=== PATIENT | female | born 1950 | race Caucasian/White ===

== ENCOUNTER 2018-02-09 18:26 | Emergency (ER) | payer MEDICARE, OTHER ==
[~2018-02-09] VITALS: Ht 162.6 cm; Wt 41.0 kg
[~2018-02-09 18:26] MED LIST: CYCL-1 PO
[2018-02-09 18:34] VITALS: BP 144/63
[2018-02-09] MEDS ORDERED: ondansetron 4mg rapidly disintigrating tab PO ONE (19:25)
[2018-02-09] MEDS ORDERED: ONDA8TAB9 PO (20:59)
== END 2018-02-09 21:34 | disposition home or self-care (01) ==
LOC: ER 18:27
DX: R43.2 Parageusia (principal); G89.29 Other chronic pain; M19.90 Unspecified osteoarthritis, unspecified site; Z79.899 Other long term (current) drug therapy
CPT/HCPCS: 93005; 99283